=== PATIENT | female | born 1975 | race Caucasian/White ===

== ENCOUNTER 2021-12-31 09:21 | Day surgery (SDC) | payer OTHER ==
[2021-12-28 11:16] LABS: Absolute Lymphocytes (CBC) 1.9 K/uL (0.7-4.9); Hematocrit 31.3 % (36.0-45.0); Lymphocytes % 26.4 % (15.3-44.8); MPV 7.8 fL (7.6-11.3); RBC Red Blood Cell Count 4.96 M/uL (3.86-4.86)
[2021-12-28 11:17] LABS: Urine Appearance CLEAR (Clear); Urine Bilirubin NEGATIVE (Negative); Urine Blood NEGATIVE (Negative); Urine Color YELLOW (Yellow); Urine Glucose NEGATIVE (Negative); Urine Protein NEGATIVE (Negative); Urine Specific Gravity <=1.005 (1.005-1.030); Urine Urobilinogen 0.2 mg/dL (0.2-1.0)
[2021-12-28 11:19] LABS: Urine Microscopic Reflex NO UMIC
[2021-12-28 12:30] LABS: Blood Morphology Comment NOTED (NOT SEEN); Platelet Estimate ADEQ; White Blood Cell Scan OK (OK)
[2021-12-28 12:31] LABS: Anisocytosis 1+; Hypochromasia 2+
[2021-12-31] MEDS ORDERED: NA CHLORIDE 0.9% 1,000 ML ONE ×2 (09:29→14:26)
[2021-12-31] MEDS ORDERED: CEFAZOLIN/SWI 2gm 2 GM/20 ML SYR ONE (09:29)
[2021-12-31] MEDS ORDERED: SCOPOLAMINE HYDROBROMIDE PATCH TD ONE ×2 (09:30→09:42)
[2021-12-31] MEDS ORDERED: dexAMETHasone 10 MG/ML VIAL ONE (10:16)
[2021-12-31] MEDS ORDERED: MIDAZOLAM HCL 2 MG/2 ML INJ ONE (10:16)
[2021-12-31] MEDS ORDERED: FENTANYL CITR 250 MCG/5 ML ONE (10:16)
[2021-12-31] MEDS ORDERED: LIDOCAINE 1% MPF 5 ML VIAL ONE (10:16)
[2021-12-31] MEDS ORDERED: propofoL 200 MG/20 ML VIAL IV ONE (10:16)
[2021-12-31] MEDS ORDERED: ONDANSETRON 4 MG/2 ML VIAL ONE (10:17)
[2021-12-31] MEDS ORDERED: LANO/MINERAL OIL/PETRO 3.5 GM ONE (10:17)
[2021-12-31] MEDS ORDERED: VECURONIUM 10 MG/VIAL IV ONE (10:17)
[2021-12-31] MEDS ORDERED: BUPIVACAINE 0.25% PF 10 ML VIAL ONE (13:33)
--- NOTE | 2021-12-31 14:20 | P.OP ---
Preoperative diagnosis: intra-abdominal adhesions Postoperative diagnosis: intra-abdominal adhesions Primary procedure: exploratory laparoscopy Secondary procedure: laparoscopic adhesiolysis Anesthesia: GETA + Local Estimated blood loss: <1cc Specimen: none Findings: adhesions from right colon to adenexa on RIGHT Complications: None
[2021-12-31] MEDS ORDERED: KETOROLAC 30 MG/ML INJ ONE (15:17)
[2021-12-31] MEDS ORDERED: GLYCOPYRROLATE 0.2 MG/ML SYR ONE (16:04)
[2021-12-31] MEDS ORDERED: NEOSTIGMINE 1 MG/ML -5 ML ONE (16:04)
[2021-12-31] MEDS ORDERED: HYDROCODONE/APAP 5/325 MG TAB PO PRN (16:05)
[2021-12-31] MEDS ORDERED: PROMETHAZINE INJ 25 MG/ML AMP IV PRN (16:05)
[2021-12-31] MEDS ORDERED: MEPERIDINE HCL 25 MG/ML SYR IM PRN (16:05)
[2021-12-31] MEDS ORDERED: IBUPROFEN 200 MG TAB PO PRN (16:05)
[2021-12-31] MEDS ORDERED: HYDROMORPHONE HCL 1 MG/ML INJ ONE (16:28)
[2021-12-31] MEDS ORDERED: PROMETHAZINE INJ 25 MG/ML AMP ONE (16:30)
[2021-12-31] MEDS ORDERED: METFORMIN HCL 500 MG TAB PO SCH (17:00)
--- NOTE | 2021-12-31 18:22 | OP ---
Date of Procedure: 12/31/2021 Surgeon: Gloria Mcmanus MD Edge Bonder: Adriane Castañeda. Preoperative Diagnoses: Menorrhagia (AUB-L/A/O), dysmenorrhea, endometriosis. Postoperative Diagnoses: Menorrhagia (AUB-L/A/O), dysmenorrhea, endometriosis, and uterovaginal prol apse. Procedures Performed: Total laparoscopic hysterectomy, bilateral salpingo-oophorectomy, uterosacral ligament suspension, endometriosis excision, and cystoscopy. Anesthesia: General endotracheal. Estimated Blood Loss: Minimal. Urine Output: 200. Specimens: Uterus, bilateral tubes and ovaries. Endometriosis included with the specimen and the po sterior aspect of the uterine serosa as well as the area of the posterior cul-de-sac. POP-Q showed uterine level 1 defect, point C was at -2. On cystoscopy of the uterosacral suspension, both ureteric orifices were patent. Indications: The patient is a 46-year-old female with history of menorrhagia and dysmenorrhea, pelvi c pain, had a surgery for right ovarian cystectomy, appendectomy in 2001 and 2002. Subsequently 11 y ears later in 2012, she underwent a laparoscopy for possible endometriosis excision that there was no ne found. There were adhesions that were found, had improved after this, recurred pain in the recent past for which she presented and that is a leading symptom for the patient. We discussed about hysterectomy for treatment of bleeding, bilateral salpingectomy with resection for ovarian cancer, and possible oophorectomy if there was any abnormal tissue; however, the patient pre ferred to have an oophorectomy as this is her third gynecological surgery and she would like to preve nt any further recurrences of her endometriotic pain. She understood the benefits and risks of early menopause and hormone therapy. She was consented and brought to the OR. 2 g of Ancef were given. SCDs were placed. General endotracheal anesthesia was given. She was plac ed in dorsal lithotomy position using Vadim stirrups. Abdomen, vulva, vagina, and perineum were prep ped and draped in a sterile fashion. Gil was placed to drain the bladder. A large VCare introduce d into the uterus and fixed in place after dilating to 16-Bruneian. This area was draped. A 1 cm infraumbilical incision made using the open laparoscopy technique. Fascia was incised, tagged with 0 Vicryl sutures. Peritoneum entered bluntly. S-retractors placed and after adequate insuffla tion, all upper abdominal surfaces were visualized and they were unremarkable. Lower abdominal surfa ce was consistent with endometriosis in the posterior cul-de-sac, posterior and lower uterine wall. There were some bowel adhesions on the left lower quadrant. Please refer to the surgeon's op note. Ten suprapubic and five left lower quadrant ports were placed under direct vision. There were no oth er anatomical distortions. Both ureters in normal anatomical position. So, at this time plan was to excise the endometriosis from the uterosacral ligaments and the cul-de-sac. She was also noted to h ave uterovaginal prolapse, which was a new diagnosis, but hysterectomy and uterosacral suspension see med to be a reasonable procedure for her. Left tube was first removed, utero-ovarian ligament taken down, round ligament taken, broad ligament as well, and bladder flap was created all the way to the opposite side on the right side and all the way to the posterior aspect of the cuff. Vessels were skeletonized and taken down. On the opposite side, similar dissection was performed to remove the tube, which was handed out for pathology. Then, the utero-ovarian ligament, round ligament, broad ligament were taken down and the anterior bladder flap was connected. Posteriorly, peritoneum taken down to the level of the uterosacral and all the v essels were exposed. Vessels and cardinal ligaments were taken down after bladder flap was cleared a nd bladder pushed down from the cuff. Then, I went on to perform a circumferential colpotomy after t aking the left side as well with a monopolar hook blade. Specimen pulled out through the vagina. Th e patient's was contacted as ovaries appeared to be normal, whether the decision was to proce ed with the ovaries or not and was very sure that the patient will prefer to have her ovaries out, which was also a part of the discussion preoperatively, so I went ahead and took the ovaries do wn the IP ligament with the LigaSure, retrieved through the vagina. Vaginal cuff was cauterized at 1 1 o'clock position with a bipolar device. Two simple angled sutures were placed with 0 Vicryl and then in a continuous running using 2-0 V-Loc suture was used to close the cuff in 2 layers. Once this was done, uterosacral ligament was resuspen ded with 0 PDS sutures to the vaginal cuff, both the posterior and anterior wall on the right side an d on the left side after visualizing the course of the ureter. After thorough irrigation and suction, all the trocars were pulled out and fascia at the umbilicus cl osed with the help of 0 Vicryl sutures which were tied to each other and the suprapubic area with sim ple 0 Vicryl suture, all skin incisions with 3-0 Vicryl. Gil was removed. Vaginal sponge was removed and cystoscopy was performed with 30-degree lens and n ormal saline. There was excellent jets of urine from both ureteric orifices. No evidence of any inj ury to the bladder. She was recovered from anesthesia and taken to PACU in stable condition. EBL wa s minimal. She will follow up with me in 1 week. FAISAL/MARGARITA Voice ID: [id number] Report ID: [id number]
[2021-12-31 18:44] VITALS: BP 127/83; TEMP 97.6; O2SAT 100
[2021-12-31] MEDS ORDERED: HYDROCODONE/APAP 5/325 MG TAB ONE (19:29)
[2022-01-01] MEDS ORDERED: ASCORBIC ACID 500 MG TABLET PO SCH (09:00)
[2022-01-01] MEDS ORDERED: VITAMIN D 5,000 UNIT CAP PO SCH (09:00)
[2022-01-01] MEDS ORDERED: HOME MED 1 EA UNK (Cetirizine Hcl [Zyrtec] 10 MG Tablet) PO SCH (09:00)
[2022-01-01] MEDS ORDERED: HOME MED 1 EA UNK (Zinc [Zinc] 50 MG Tablet) PO SCH (09:00)
== END 2021-12-31 19:52 | disposition home or self-care (01) ==
LOC: OR 09:21
PROVIDERS: ATTEND Obstetrics & Gynecology
PROC: 0UT24ZZ Resection of Bilateral Ovaries, Percutaneous Endoscopic Approach (ICD-10-PCS; 2021-12-31)
PROC: 0UT74ZZ Resection of Bilateral Fallopian Tubes, Percutaneous Endoscopic Approach (ICD-10-PCS; 2021-12-31)
PROC: 0USG7ZZ Reposition Vagina, Via Natural or Artificial Opening (ICD-10-PCS; 2021-12-31)
PROC: 0UBF4ZZ Excision of Cul-de-sac, Percutaneous Endoscopic Approach (ICD-10-PCS; 2021-12-31)
PROC: 0UB94ZZ Excision of Uterus, Percutaneous Endoscopic Approach (ICD-10-PCS; 2021-12-31)
PROC: 0UT94ZZ Resection of Uterus, Percutaneous Endoscopic Approach (ICD-10-PCS; principal; 2021-12-31 11:45)
DX: D25.9 Leiomyoma of uterus, unspecified (principal); D25.2 Subserosal leiomyoma of uterus; N81.4 Uterovaginal prolapse, unspecified; N92.1 Excessive and frequent menstruation with irregular cycle; N95.1 Menopausal and female climacteric states; R10.2 Pelvic and perineal pain; M25.551 Pain in right hip; E11.9 Type 2 diabetes mellitus without complications; N80.3 Endometriosis of pelvic peritoneum; N80.0 Endometriosis of uterus; N88.8 Other specified noninflammatory disorders of cervix uteri
CPT/HCPCS: 85025; 36415; 86900; 86850; 81025; 86901; 82947 ×2; 88307; 81003; 58571; 57283; 58662; J2704; J2550; J2250; J3010; J1100; J1170; J2710; J0690; J7030 ×2; J2405